=== PATIENT | male | born 1965 | race Caucasian/White ===

== ENCOUNTER 2017-01-07 15:55 | Emergency (ER) | payer BC, OTHER ==
[2017-01-07] MEDS ORDERED: SODIUM CHLORIDE 0.9% 500 ML IV ONE (16:18)
[2017-01-07] MEDS ORDERED: CLINDAMYCIN 600MG/50ML PREMIX 600 MG/50 ML BAG IVPB ONE (16:19)
--- NOTE | 2017-01-07 16:39 | Emergency Department Record ---
History of Present Illness - General Chief complaint: Abscess Stated complaint: SORE ON LEFT KNEE Time Seen by Provider: 01/07/17 16:12 Source: Patient Mode of Arrival: Ambulatory Limitations: No limitations - History of Present Illness Initial comments: The patient has had a long standing cyst to the lateral L knee and now it has become inflamed and painful for the last week. He did see his PCP a few days ago and was placed on Bactrim. Now the area is more inflamed and the lower leg is slightly swollen and tender. MD complaint: Abscess/boil Onset/Timin -: Days(s) Location: LLE Consistency: Constant Improves with: None Worsens with: None Context: None Associated symptoms: Fever Treatments Prior to Arrival: Other - Related Data Home Medications Medication Instructions Recorded Confirmed Last Taken Sulfamethoxazole/Trimethoprim 1 tab PO BID 01/07/17 01/07/17 01/07/17 [Bactrim Ds] Previous Rx's Medication Instructions Recorded Clindamycin HCl [Cleocin HCl] 300 mg PO QID #28 capsule 01/07/17 Allergies Allergy/AdvReac Type Severity Reaction Status Date / Time No Known Drug Allergies Allergy Verified 01/07/17 16:12 Travel Screening - Travel/Exposure Within Last 30 Days Have you traveled within the last 30 days?: No Review of Systems Constitutional: Reports: Chills. Denies: Fever, Malaise Past Medical History - SOCIAL HISTORY Smoking Status: Current every day smoker Alcohol Use: None Drug Use: None - RESPIRATORY Hx Respiratory Disorders: No - CARDIOVASCULAR Hx Cardio Disorders: No - NEURO Hx Neuro Disorders: No - GI Hx GI Disorders: No - Hx Genitourinary Disorders: No - ENDOCRINE Hx Endocrine Disorders: No - MUSCULOSKELETAL Hx Musculoskeletal Disorders: No - PSYCH Hx Psych Problems: No - HEMATOLOGY/ONCOLOGY Hx Hematology/Oncology Disorders: No Family Medical History Any Significant Family History?: No Physical Exam - General General Appearance: Alert, Oriented x3, Cooperative, No acute distress - Head Head exam: Atraumatic, Normocephalic, Normal inspection - Eye Eye exam: Normal appearance, PERRL - Neck Neck exam: Normal inspection, Full ROM. negative: Tenderness - Respiratory Respiratory exam: Normal lung sounds bilaterally. negative: Respiratory distress - Cardiovascular Cardiovascular Exam: Regular rate, Normal rhythm, Normal heart sounds - Extremities Extremities exam: Full ROM (There is no pain with ROM.), Tenderness (There is mild tenderness to the L lateral proximal lower leg.). negative: Normal inspection (There is an obvious skin abscess to the distal lateral L knee area. The L knee joint is normal with no swelling or joint effusion.) Image of Full Body: 1 - Area of cyst and tenderness. Course Vital Signs 01/07/17 16:04 Temperature 99.4 F Pulse Rate 91 H Respiratory 20 Rate Blood Pressure 128/85 Pulse Ox 98 - Reevaluation(s) Reevaluation #1: Procedure note: The L knee cyst was anesth. with 3 cc's Lido 1%. The area was incised with a #11 blade. A large amount of purulence and sebum was expelled. There were no complications. The wound was packed with iodoform gauze. 01/07/17 16:49 Reevaluation #2: The patient is doing well. He denies any fever, chills, or increased pain. He is feeling better and is ready for home. I did discuss the issues with the patient and the need for return to the ER for any worsening symptoms. 01/07/17 17:30 Medical Decision Making - Data Complexity MDM Data: Labs Ordered and/or Reviewed - Lab Data Result diagrams: 01/07/17 16:18 01/07/17 16:30 Disposition Disposition: Discharge Clinical Impression: Abscess of leg Disposition: Home, Self-Care Condition: (2) Stable Instructions: Abscess (ED) Additional Instructions: Please keep the L leg dry for 2 days and elevate the leg. Stop the Bactrim and start the Clindamycin. Please return to the ER for any increased pain, swelling , redness or fever. Please remove the packing in 2 days. Please see your PCP next week for recheck of the L leg wound. Prescriptions: Clindamycin HCl [Cleocin HCl] 300 mg PO QID #28 capsule Forms: Patient Portal Access Time of Disposition: 17:33 Quality - Quality Measures Quality Measures: N/A - Blood Pressure Screening View Details: Yes Does Patient Have Any of the Following: No Blood Pressure Classification: Pre-Hypertensive BP Reading Systolic Measurement: 131 Diastolic Measurement: 84 Screening for High Blood Pressure: < Pre-Hypertensive BP, F/U Documented > [ G8950] Pre-Hypertensive Follow-up Interventions: Referral to alternative/primary care provider.
[2017-01-07 16:53] LABS: BASO % 0.2 % (0-6); EOS % 2.5 % (0-6); GRAN % 68.2 % (47-80); HEMATOCRIT 42.1 % (42.0-52.0); LYMPH % 14.6 % (16-45); MEAN CELL VOLUME 97.2 fl (81-97); MEAN CORPUSCULAR HEMOGLOBIN 32.3 pg (27-33); MEAN CORPUSCULAR HGB CONC 33.3 g/dl (32-36); MEAN PLATELET VOLUME 9.2 fl (7.4-10.4); MONO % 14.5 % (0-9); PLATELET COUNT 308 K/uL (130-400); RED BLOOD COUNT 4.33 M/uL (4.40-5.70); RED CELL DISTRIBUTION WIDTH 12.7 % (11.5-14.5); WHITE BLOOD COUNT W/O DIFF 12.7 K/uL (4.2-12.2)
[2017-01-07 17:08] LABS: BLOOD UREA NITROGEN 12 mg/dL (6-20); CREATININE 0.9 mg/dL (0.7-1.2); EST GLOMERULAR FILTRATION RATE > 60 mL/min
[2017-01-07 17:11] LABS: GLUCOSE,RANDOM 98 mg/dL (74-109)
== END 2017-01-07 17:44 | disposition home or self-care (01) ==
LOC: ER 15:55
DX: L02.416 Cutaneous abscess of left lower limb (principal)
CPT/HCPCS: 10060; 80048; 85025; 86140; 96374; 99283; 99284

== ENCOUNTER 2017-01-28 08:10 | Emergency (ER) | payer OTHER ==
--- NOTE | 2017-01-28 08:48 | Emergency Department Record ---
History of Present Illness - General Chief complaint: Abscess Stated complaint: LUMP BACK OF NECK Time Seen by Provider: 01/28/17 08:36 Source: Patient Mode of Arrival: Ambulatory Limitations: No limitations - History of Present Illness Initial comments: pt has had a cyst on the back of his neck for a year and wants it cut out now. he had a previous abscess and is concerned that this will turn into one MD complaint: Other Onset/Timin -: Year(s) Location: Neck Severity: Mild Improves with: None Worsens with: None Context: Other Associated symptoms: Denies other symptoms Treatments Prior to Arrival: None - Related Data Home Medications Medication Instructions Recorded Confirmed Last Taken No Home Med [NO HOME MEDS] 01/28/17 01/28/17 Unknown Allergies Allergy/AdvReac Type Severity Reaction Status Date / Time No Known Drug Allergies Allergy Verified 01/28/17 08:13 Travel Screening - Travel/Exposure Within Last 30 Days Have you traveled within the last 30 days?: No - Travel/Exposure Within Last Year Have you traveled outside the [place] in the last year?: No - Additonal Travel Details Have you been exposed to anyone with a communicable illness?: No - Travel Symptoms Symptom Screening: None Review of Systems Reviewed: No additional complaints except as noted below Constitutional: Reports: As per HPI. Denies: Chills, Fever, Malaise, Night sweats, Weakness, Weight change Eyes: Reports: As per HPI. Denies: Eye discharge, Eye pain, Photophobia, Vision change ENT: Reports: As per HPI. Denies: Congestion, Dental pain, Ear pain, Epistaxis , Hearing loss, Throat pain Respiratory: Reports: As per HPI. Denies: Cough, Dyspnea, Hemoptysis, Stridor, Wheezes Cardiovascular: Reports: As per HPI. Denies: Arrhythmia, Chest pain, Dyspnea on exertion, Edema, Murmurs, Orthopnea, Palpitations, Paroxysmal nocturnal dyspnea, Rheumatic Fever, Syncope Endocrine: Reports: As per HPI. Denies: Fatigue, Heat or cold intolerance, Polydipsia, Polyuria Gastrointestinal: Reports: As per HPI. Denies: Abdominal pain, Constipation, Diarrhea, Hematemesis, Hematochezia, Melena, Nausea, Vomiting Genitourinary: Reports: As per HPI. Denies: Dysuria, Frequency, Hematuria, Incontinence, Retention, Testicular pain, Testicular mass, Urgency Musculoskeletal: Reports: As per HPI. Denies: Arthralgia, Back pain, Gout, Joint swelling, Myalgia, Neck pain Skin: Reports: As per HPI. Denies: Bruising, Change in color, Change in hair/ nails, Lesions, Pruritus, Rash Neurological: Reports: As per HPI. Denies: Abnormal gait, Confusion, Headache, Numbness, Paresthesias, Seizure, Tingling, Tremors, Vertigo, Weakness Psychiatric: Reports: As per HPI. Denies: Anxiety, Auditory hallucinations, Depression, Homicidal thoughts, Suicidal thoughts, Visual hallucinations Hematological/Lymphatic: Reports: As per HPI. Denies: Anemia, Blood Clots, Easy bleeding, Easy bruising, Swollen glands Past Medical History - SOCIAL HISTORY Smoking Status: Current every day smoker Alcohol Use: None Drug Use: None - RESPIRATORY Hx Respiratory Disorders: No - CARDIOVASCULAR Hx Cardio Disorders: No - NEURO Hx Neuro Disorders: No - GI Hx GI Disorders: No - Hx Genitourinary Disorders: No - ENDOCRINE Hx Endocrine Disorders: No - MUSCULOSKELETAL Hx Musculoskeletal Disorders: No - PSYCH Hx Psych Problems: No - HEMATOLOGY/ONCOLOGY Hx Hematology/Oncology Disorders: No Family Medical History Any Significant Family History?: No Physical Exam - General General Appearance: Alert, Oriented x3, Cooperative, No acute distress - Head Head exam: Normal inspection - Eye Eye exam: Normal appearance, PERRL, EOMI Pupils: Normal accommodation - ENT ENT exam: Normal exam, Mucous membranes moist, Normal external ear exam, Normal orophraynx Ear exam: Normal external inspection. negative: External canal tenderness Nasal Exam: Normal inspection. negative: Discharge, Sinus tenderness Mouth exam: Normal external inspection, Tongue normal Teeth exam: Normal inspection. negative: Dental caries Throat exam: Normal inspection. negative: Tonsillar erythema, Tonsillar exudate - Neck Neck exam: Full ROM, Lymphadenopathy, Tenderness, Other (alcantara power size cyst vs enlarged lymph node w small pea size mass on top.) - Respiratory Respiratory exam: Normal lung sounds bilaterally. negative: Respiratory distress - Cardiovascular Cardiovascular Exam: Regular rate, Normal rhythm, Normal heart sounds - GI/Abdominal GI/Abdominal exam: Soft, Normal bowel sounds. negative: Tenderness - Rectal Rectal exam: Deferred - exam: Deferred - Extremities Extremities exam: Normal inspection, Full ROM, Normal capillary refill. negative: Tenderness - Back Back exam: Reports: Normal inspection, Full ROM. Denies: Muscle spasm, Rash noted, Tenderness - Neurological Neurological exam: Alert, Normal gait, Oriented X3, Reflexes normal - Psychiatric Psychiatric exam: Normal affect, Normal mood - Skin Skin exam: Dry, Intact, Normal color, Warm Course Vital Signs 01/28/17 08:18 Temperature 98.2 F Pulse Rate 73 Respiratory 14 Rate Blood Pressure 135/93 Pulse Ox 97 - Reevaluation(s) Reevaluation #1: 01/28/17 08:51 pt was angry that i wouldnt cut it out though i eplained the need for a referral and that we dont excise cysts in ed unless they present with an emergency. he is refusing abx for the tiny area of cellulitis. he just wants to leave but he does want a referral to a surgeon Disposition Disposition: Discharge Clinical Impression: Cyst Disposition: Home, Self-Care Condition: (1) Good Instructions: Soft Tissue Mass (ED) Additional Instructions: follow up with dr kline. may return at any time Referrals: Robbin Kline [DOCTOR OF OSTEOPATH] - [facility] [Provider Group] Forms: Patient Portal Access Quality - Quality Measures Quality Measures: N/A - Blood Pressure Screening Does Patient Have Any of the Following: No Blood Pressure Classification: Hypertensive Reading Systolic Measurement: 135 Diastolic Measurement: 93 Screening for High Blood Pressure: < First Hypertensive BP, F/U Documented > [ G8950] First Hypertensive Follow-up Interventions: Follow-up with rescreen GT 1 day and LT 4 weeks.
== END 2017-01-28 08:50 | disposition home or self-care (01) ==
LOC: ER 08:10
DX: L72.8 Other follicular cysts of the skin and subcutaneous tissue (principal)
CPT/HCPCS: 99282